=== PATIENT | female | born 1990 | race Two or more races ===

== ENCOUNTER 2020-07-01 14:21 | Emergency (ER) | payer MEDICAID ==
[~2020-07-01] VITALS: Ht 162.6 cm; Wt 116.9 kg
[~2020-07-01 14:21] MED LIST: NO HOME MEDS; ONDA8TAB6 PO; PREN-117 PO
[2020-07-01 14:33] VITALS: BP 167/97
[2020-07-01] MEDS ORDERED: AMOX-117 PO (15:11)
[2020-07-01] MEDS ORDERED: IBUP-1984 PO (15:12)
== END 2020-07-01 15:45 | disposition home or self-care (01) ==
LOC: ER 14:22
DX: K11.1 Hypertrophy of salivary gland (principal); E11.9 Type 2 diabetes mellitus without complications; Z72.89 Other problems related to lifestyle; Z98.890 Other specified postprocedural states; Z79.899 Other long term (current) drug therapy
CPT/HCPCS: 99283

== ENCOUNTER 2022-07-23 07:18 | Emergency (ER) | payer MEDICAID ==
[~2022-07-23] VITALS: Ht 162.6 cm; Wt 98.6 kg
[2022-07-23 09:04] LABS: BASOPHILS # (AUTO) 0.1 X10'3 (0-0.2); BASOPHILS % (AUTO) 0.9 % (0-1); EOSINOPHILS # (AUTO) 0.1 X10'3 (0-0.9); HEMATOCRIT 32.7 % (35.0-45.0); HEMOGLOBIN 10.3 g/dl (12.0-16.0); LYMPHOCYTES # (AUTO) 3.7 X10'3 (1.1-4.8); LYMPHOCYTES % (AUTO) 32.7 % (21-51); MEAN CORPUSCULAR HEMOGLOBIN 20.4 PG (27.0-31.0); MEAN CORPUSCULAR HGB CONC 31.3 g/dL (33.0-36.5); MEAN CORPUSCULAR VOLUME 65.1 FL (78-98); MEAN PLATELET VOLUME 8.7 FL (7.4-10.4); MONOCYTES # (AUTO) 0.7 X10'3 (0-0.9); MONOCYTES % (AUTO) 6.3 % (2-12); NEUTROPHILS # (AUTO) 6.7 X10'3 (1.8-7.7); NEUTROPHILS % (AUTO) 59.1 % (42-75); PLATELET COUNT 317 X10'3 (140-440); RED BLOOD COUNT 5.02 X10'6 (4.20-5.60); RED CELL DISTRIBUTION WIDTH 16.7 % (11.5-14.5); WHITE BLOOD COUNT 11.3 X10'3 (4.5-11.0)
[2022-07-23 09:12] LABS: ALANINE AMINOTRANSFERASE 23 U/L (12-78); ALBUMIN 4.2 G/DL (3.4-5.0); ALBUMIN/GLOBULIN RATIO 1.1 (1.1-1.5); ALKALINE PHOSPHATASE 54 IU/L (46-116); ANION GAP 9 (8-16); ASPARTATE AMINO TRANSFERASE 16 U/L (10-37); BILIRUBIN,TOTAL 0.4 MG/DL (0.1-1.0); BLOOD UREA NITROGEN 9 MG/DL (7-18); BUN/CREATININE RATIO 11.8 (6.6-38.0); CALCIUM 9.7 MG/DL (8.5-10.1); CHLORIDE 104 MMOL/L (99-107); CREATININE 0.76 MG/DL (0.40-0.90); GLUCOSE 107 MG/DL (70-104); POTASSIUM 3.7 MMOL/L (3.5-5.1); SODIUM 138 MMOL/L (135-145); TOTAL CARBON DIOXIDE 25.3 MMOL/L (24-32); TOTAL PROTEIN 8.1 G/DL (6.4-8.2); eGFR 88 ML/MIN
[2022-07-23 09:31] LABS: ANISOCYTOSIS 1+; ELLIPTOCYTES FEW; HYPOCHROMASIA 1+; MICROCYTOSIS 2+; PLATELET ESTIMATE NORMAL; POLYCHROMASIA FEW; STOMATOCYTES FEW; TEAR DROP CELLS FEW
[2022-07-23] MEDS ORDERED: LISI10TA27 PO (09:39)
--- NOTE | 2022-07-23 10:30 | NUR ---
PT'S RX WAS SENT TO [facility] [address] [place]. PT REQUESTED THAT RX BE SENT TO [facility] IN [place]. RX FOR LISINOPRIL 10 MG; 1 PO DAILY x30 DAYS, #[address] [facility] IN [place] AND WAS CANCLED AT THE [facility] [address]
[2022-07-23 14:28] VITALS: BP 187/109
== END 2022-07-23 10:30 | disposition home or self-care (01) ==
LOC: ER 07:18
DX: I10 Essential (primary) hypertension (principal); E11.9 Type 2 diabetes mellitus without complications; Z98.890 Other specified postprocedural states
CPT/HCPCS: 36415; 71045; 80053; 82948; 83880; 84484; 85008; 85025; 93005; 99285